=== PATIENT | male | born 1990 | race Hispanic/Latino ===

== ENCOUNTER 2022-10-09 21:33 | Emergency (ER) | payer OTHER ==
[~2022-10-09] VITALS: Ht 177.8 cm; Wt 114.8 kg
[2022-10-09 21:40] VITALS: BP 135/90
[2022-10-09] MEDS ORDERED: KETOROLAC 30MG VIAL (30MG/ML) IM ONE (22:30)
[2022-10-09] MEDS ORDERED: CYCLOBENZAPRINE HCL 10 MG TABLET PO ONE (22:30)
[2022-10-10] MEDS ORDERED: IBUP-2077 PO (00:03)
[2022-10-10] MEDS ORDERED: CYCL10TA16 PO (00:03)
== END 2022-10-10 00:14 | disposition home or self-care (01) ==
LOC: EDH 21:33
DX: S39.012A Strain of muscle, fascia and tendon of lower back, initial encounter (principal); X58.XXXA Exposure to other specified factors, initial encounter; Y93.89 Activity, other specified; Y92.89 Other specified places as the place of occurrence of the external cause; Y99.8 Other external cause status
CPT/HCPCS: 99283; 72100; 96372; J1885

== ENCOUNTER 2022-11-06 22:56 | Emergency (ER) | payer OTHER ==
[~2022-11-06] VITALS: Ht 177.8 cm; Wt 110.2 kg
[~2022-11-06 22:56] MED LIST: CYCL10TA16 PO; IBUP-2077 PO
[2022-11-07] MEDS ORDERED: MORPHINE 4 MG SYG IVP ONE
[2022-11-07] MEDS ORDERED: 0.9%NACL 1000ML 1,000 ML IV ONE
[2022-11-07] MEDS ORDERED: ONDANSETRON 4MG INJ IVP ONE
[2022-11-07 00:33] LABS: BASOPHILS % (AUTO) 0.7 % (0.0-5.0); CREATININE 1.1 mg/dL (0.5-1.5); EOSINOPHILS % (AUTO) 2.9 % (0.0-8.0); LYMPHOCYTES % (AUTO) 26.2 % (21.0-51.0); MEAN CORPUSCULAR HEMOGLOBIN 28.6 pg (27.0-33.0); MEAN CORPUSCULAR HGB CONC 33.4 g/dL (32.0-36.0); MEAN CORPUSCULAR VOLUME 85.6 fL (79-99); NEUTROPHILS % (AUTO) 58.7 % (40.0-77.0); PLATELET COUNT (AUTO) 338 K/uL (130-400); POTASSIUM 3.8 mmol/L (3.5-5.1); RED BLOOD CELL COUNT(AUTO) 5.14 MIL/uL (4.50-6.20); RED CELL DISTRIBUTION WIDTH 12.3 % (11.0-15.5); WHITE BLOOD COUNT (AUTO) 10.3 K/uL (4.8-10.8)
[2022-11-07 00:38] LABS: ALBUMIN 4.2 g/dL (3.5-5.0); TOTAL PROTEIN, SERUM 7.5 g/dL (6.0-8.3)
[2022-11-07] MEDS ORDERED: IOHEXOL 350 MG/ML 100ML INFUS..BTL IV ONE (00:40)
[2022-11-07 00:54] LABS: APPEARANCE,URINE CLEAR (CLEAR); BILIRUBIN,URINE NEGATIVE (NEGATIVE); COLOR,URINE LIGHT-YELLOW (YELLOW); GLUCOSE, URINE (UA) NEGATIVE (NEGATIVE); KETONES,URINE NEGATIVE (NEGATIVE); LEUKOCYTE ESTERASE ,URINE NEGATIVE Leu/uL (NEGATIVE); NITRATE,URINE NEGATIVE (NEGATIVE); OCCULT BLOOD,URINE NEGATIVE (NEGATIVE); PH,URINE 5.5 (5.0-8.0); PROTEIN,URINE NEGATIVE (NEGATIVE); UROBILINOGEN,URINE 0.2 mg/dL (0.2-1.0)
[2022-11-07] MEDS ORDERED: IBUP-1493 PO (01:16)
[2022-11-07] MEDS ORDERED: OMEP40CA21 PO (01:16)
[2022-11-07 01:27] VITALS: BP 141/87
== END 2022-11-07 01:58 | disposition home or self-care (01) ==
LOC: EDH 22:56
DX: R10.9 Unspecified abdominal pain (principal); M54.50 Low back pain, unspecified; R11.2 Nausea with vomiting, unspecified; K40.90 Unilateral inguinal hernia, without obstruction or gangrene, not specified as recurrent; Z79.899 Other long term (current) drug therapy
CPT/HCPCS: 99285; 74177; 80053; 85025; 83605; 81003; 36415; 96374; 96361; 96375; J7030; J2405; J2270; Q9967

== ENCOUNTER 2023-03-23 19:05 | Emergency (ER) | payer OTHER ==
[~2023-03-23] VITALS: Ht 177.8 cm; Wt 116.6 kg
[~2023-03-23 19:05] MED LIST changes: +IBUP-1493 PO; +OMEP40CA21 PO
[2023-03-23] MEDS ORDERED: IBUP-1493 PO (21:03)
[2023-03-23] MEDS ORDERED: CYCL-309 PO (21:03)
[2023-03-23 21:41] VITALS: BP 139/83; PULSE 89; RESP 18; O2SAT 99
== END 2023-03-23 21:42 | disposition home or self-care (01) ==
LOC: EDH 19:05
DX: S09.8XXA Other specified injuries of head, initial encounter (principal); F41.9 Anxiety disorder, unspecified; Z79.899 Other long term (current) drug therapy; W18.39XA Other fall on same level, initial encounter; Y93.89 Activity, other specified; Y92.89 Other specified places as the place of occurrence of the external cause; Y99.8 Other external cause status
CPT/HCPCS: 70450; 72125

== ENCOUNTER 2023-04-05 20:33 | Emergency (ER) | payer OTHER ==
[~2023-04-05] VITALS: Ht 177.8 cm; Wt 111.1 kg
[~2023-04-05 20:33] MED LIST changes: +CYCL-309 PO; -CYCL10TA16 PO; -IBUP-2077 PO
[2023-04-05 21:02] LABS: SARS-CoV-2, RNA, NAAT NEGATIVE SARS CoV-2 (NEGATIVE)
[2023-04-05 21:07] LABS: BASOPHILS # (AUTO) 0.06 K/uL (0.00-0.20); BASOPHILS % (AUTO) 0.6 % (0.0-5.0); EOSINOPHILS # (AUTO) 0.21 K/uL (0.00-0.70); EOSINOPHILS % (AUTO) 2.1 % (0.0-8.0); HEMATOCRIT 42.8 % (42-54); IMMATURE GRANULOCYTE ABSOLUTE 0.03 K/uL (0-1); LYMPHOCYTES # (AUTO) 2.5 K/uL (1.0-4.8); LYMPHOCYTES % (AUTO) 24.5 % (21.0-51.0); MEAN CORPUSCULAR HEMOGLOBIN 29.4 pg (27.0-33.0); MEAN CORPUSCULAR HGB CONC 33.9 g/dL (32.0-36.0); MEAN CORPUSCULAR VOLUME 86.8 fL (79-99); MONOCYTES % (AUTO) 9.9 % (3.0-13.0); NEUTROPHILS # (AUTO) 6.3 K/uL (1.8-7.7); NEUTROPHILS % (AUTO) 62.6 % (40.0-77.0); PLATELET COUNT (AUTO) 328 K/uL (130-400); RED BLOOD CELL COUNT(AUTO) 4.93 MIL/uL (4.50-6.20); RED CELL DISTRIBUTION WIDTH 12.2 % (11.0-15.5)
[2023-04-05 21:08] LABS: INFLUENZA TYPE A Negative For Type A (NEGATIVE); INFLUENZA TYPE B Negative For Type B (NEGATIVE)
[2023-04-05 21:18] LABS: CREATININE 1.2 mg/dL (0.5-1.5); POTASSIUM 3.3 mmol/L (3.5-5.1)
[2023-04-05 21:23] LABS: BILIRUBIN,TOTAL 0.5 mg/dL (0.2-1.0); TOTAL PROTEIN, SERUM 7.5 g/dL (6.0-8.3)
[2023-04-05 22:26] LABS: BILIRUBIN,URINE NEGATIVE (NEGATIVE); COLOR,URINE LIGHT-YELLOW (YELLOW); GLUCOSE, URINE (UA) NEGATIVE (NEGATIVE); KETONES,URINE NEGATIVE (NEGATIVE); LEUKOCYTE ESTERASE ,URINE NEGATIVE Leu/uL (NEGATIVE); NITRATE,URINE NEGATIVE (NEGATIVE); OCCULT BLOOD,URINE NEGATIVE (NEGATIVE); PROTEIN,URINE NEGATIVE (NEGATIVE); UROBILINOGEN,URINE 0.2 mg/dL (0.2-1.0)
[2023-04-05 22:27] LABS: APPEARANCE,URINE CLEAR (CLEAR)
[2023-04-05 22:28] LABS: ADD UA MICROSCOPIC NO
[2023-04-06] MEDS ORDERED: OMEP40CA21 PO (00:51)
[2023-04-06 00:59] VITALS: BP 124/70; PULSE 78; RESP 18; O2SAT 98
== END 2023-04-06 01:15 | disposition home or self-care (01) ==
LOC: EDH 20:33
DX: R07.89 Other chest pain (principal); F41.9 Anxiety disorder, unspecified; Z20.822 Contact with and (suspected) exposure to COVID-19; Z79.899 Other long term (current) drug therapy
CPT/HCPCS: 99285; 76705; 71045; 87635; 84484; 80053; 85025; 87804 ×2; 81003; 36415; 93005; C9803

== ENCOUNTER 2023-11-22 19:27 | Emergency (ER) | payer BC ==
[~2023-11-22] VITALS: Ht 177.8 cm; Wt 106.6 kg
[2023-11-22] MEDS ORDERED: KETO10TA2 PO (21:23)
[2023-11-22] MEDS: KETOROLAC 30MG VIAL (30MG/ML) IM ONE (21:32)
[2023-11-22 21:38] VITALS: BP 125/83; PULSE 63; RESP 16; O2SAT 97
== END 2023-11-22 22:05 | disposition home or self-care (01) ==
LOC: EDH 19:27
DX: S89.91XA Unspecified injury of right lower leg, initial encounter (principal); F41.9 Anxiety disorder, unspecified; X58.XXXA Exposure to other specified factors, initial encounter; Y93.89 Activity, other specified; Y92.89 Other specified places as the place of occurrence of the external cause; Y99.8 Other external cause status
CPT/HCPCS: 99284; 29505; 73562; 96372; J1885

== ENCOUNTER 2023-12-16 22:08 | Emergency (ER) | payer BC ==
[~2023-12-16] VITALS: Ht 177.8 cm; Wt 104.3 kg
[~2023-12-16 22:08] MED LIST changes: +KETO10TA2 PO
[2023-12-16] MEDS: ACETAMINOPHEN 500 MG TABLET PO ONE (22:29)
[2023-12-16 23:37] VITALS: BP 138/78; PULSE 91; RESP 19; O2SAT 100
== END 2023-12-17 00:23 | disposition home or self-care (01) ==
LOC: EDH 22:08
DX: S09.90XA Unspecified injury of head, initial encounter (principal); F41.9 Anxiety disorder, unspecified; Z79.1 Long term (current) use of non-steroidal anti-inflammatories (NSAID); Z79.899 Other long term (current) drug therapy; W18.39XA Other fall on same level, initial encounter; Y93.89 Activity, other specified; Y92.89 Other specified places as the place of occurrence of the external cause; Y99.8 Other external cause status
CPT/HCPCS: 70450; 72125

== ENCOUNTER 2024-02-26 05:59 | Emergency (ER) | payer BC ==
[~2024-02-26] VITALS: Ht 177.8 cm; Wt 108.9 kg
[2024-02-26] MEDS: ketOROlac 15MG/ML VIAL (15MG/ML) IM ONE (07:48)
[2024-02-26 07:57] LABS: HEMATOCRIT 44.1 % (42-54); MEAN CORPUSCULAR HEMOGLOBIN 29.7 pg (27.0-33.0); MEAN CORPUSCULAR HGB CONC 33.3 g/dL (32.0-36.0); MEAN CORPUSCULAR VOLUME 89.1 fL (79-99); PLATELET COUNT (AUTO) 317 K/uL (130-400); RED BLOOD CELL COUNT(AUTO) 4.95 MIL/uL (4.50-6.20); RED CELL DISTRIBUTION WIDTH 12.2 % (11.0-15.5); WHITE BLOOD COUNT (AUTO) 13.3 K/uL (4.8-10.8)
[2024-02-26 08:02] LABS: BASOPHILS # (AUTO) 0.06 K/uL (0.00-0.20); BASOPHILS % (AUTO) 0.5 % (0.0-5.0); EOSINOPHILS # (AUTO) 0.23 K/uL (0.00-0.70); EOSINOPHILS % (AUTO) 1.8 % (0.0-8.0); IMMATURE GRANULOCYTE ABSOLUTE 0.05 K/uL (0-1); LYMPHOCYTES # (AUTO) 2.3 K/uL (1.0-4.8); LYMPHOCYTES % (AUTO) 17.9 % (21.0-51.0); MONOCYTES # (AUTO) 1.1 K/uL (0.1-1.0); MONOCYTES % (AUTO) 8.3 % (3.0-13.0); NEUTROPHILS # (AUTO) 9.3 K/uL (1.8-7.7); NEUTROPHILS % (AUTO) 71.1 % (40.0-77.0)
[2024-02-26 08:08] LABS: POTASSIUM 3.4 mmol/L (3.5-5.1)
[2024-02-26] MEDS ORDERED: DICL500C PO (08:43)
[2024-02-26] MEDS ORDERED: IBUP-2077 PO (08:45)
[2024-02-26 08:59] VITALS: BP 129/88; PULSE 80; RESP 14; TEMP 98; O2SAT 99
== END 2024-02-26 09:00 | disposition home or self-care (01) ==
LOC: EDH 05:59
DX: L02.212 Cutaneous abscess of back [any part, except buttock and flank] (principal); L74.3 Miliaria, unspecified; Z79.899 Other long term (current) drug therapy; Z79.2 Long term (current) use of antibiotics
CPT/HCPCS: 99284; 10060; 80048; 85025; 36415; 96372; J1885

== ENCOUNTER 2024-08-22 03:56 | Emergency (ER) | payer BC ==
[~2024-08-22] VITALS: Ht 177.8 cm; Wt 113.4 kg
[~2024-08-22 03:56] MED LIST changes: +DICL500C PO; +IBUP-2077 PO
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
[2024-08-22 04:29] LABS: BASOPHILS % (AUTO) 0.8 % (0.0-5.0); EOSINOPHILS # (AUTO) 0.02 K/uL (0.00-0.70); EOSINOPHILS % (AUTO) 0.2 % (0.0-8.0); HEMATOCRIT 43.2 % (42-54); IMMATURE GRANULOCYTE ABSOLUTE 0.08 K/uL (0-1); LYMPHOCYTES # (AUTO) 2.4 K/uL (1.0-4.8); LYMPHOCYTES % (AUTO) 18.4 % (21.0-51.0); MEAN CORPUSCULAR HEMOGLOBIN 29.1 pg (27.0-33.0); MEAN CORPUSCULAR HGB CONC 32.6 g/dL (32.0-36.0); MEAN CORPUSCULAR VOLUME 89.1 fL (79-99); MONOCYTES # (AUTO) 1.2 K/uL (0.1-1.0); MONOCYTES % (AUTO) 9.2 % (3.0-13.0); NEUTROPHILS # (AUTO) 9.1 K/uL (1.8-7.7); NEUTROPHILS % (AUTO) 70.8 % (40.0-77.0); PLATELET COUNT (AUTO) 436 K/uL (130-400); RED BLOOD CELL COUNT(AUTO) 4.85 MIL/uL (4.50-6.20); RED CELL DISTRIBUTION WIDTH 12.4 % (11.0-15.5); WHITE BLOOD COUNT (AUTO) 12.9 K/uL (4.8-10.8)
[2024-08-22 04:36] LABS: ALCOHOL, BLOOD < 3 mg/dL (0-10); CARBON DIOXIDE 32 mmol/L (21-32); CHLORIDE 103 mmol/L (101-111); CREATININE 1.1 mg/dL (0.5-1.3); GLOMERULAR FILTR. RATE CALC 90 mL/min (>90); GLUCOSE,RANDOM 108 mg/dL (70-105); POTASSIUM 3.7 mmol/L (3.5-5.1); SODIUM SERUM 139 mmol/L (136-145); UREA NITROGEN, BLOOD 14 mg/dL (7-18)
[2024-08-22] MEDS: ondanSETRON 4MG INJ IVP ONE (04:49)
[2024-08-22] MEDS: ketOROlac 15MG/ML VIAL (15MG/ML) IV ONE (04:49)
[2024-08-22 05:17] LABS: AMPHET/METH SCREEN,URINE NEGATIVE (NEGATIVE); BARBITURATE SCREEN, URINE NEGATIVE (NEGATIVE); BENZODIAZEPINES SCREEN,URINE NEGATIVE (NEGATIVE); CANNABINOID SCREEN,URINE NEGATIVE (NEGATIVE); COCAINE SCREEN,URINE NEGATIVE (NEGATIVE); OPIATE SCREEN,URINE NEGATIVE (NEGATIVE); PHENCYCLIDINE SCREEN,URINE NEGATIVE (NEGATIVE)
[2024-08-22 06:51] VITALS: BP 141/74; PULSE 73; RESP 17; TEMP 98.4; O2SAT 99
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
== END 2024-08-22 06:55 | disposition home or self-care (01) ==
LOC: EDH 03:56
DX: S06.0XAA Concussion with loss of consciousness status unknown, initial encounter (principal); E66.9 Obesity, unspecified; Z79.1 Long term (current) use of non-steroidal anti-inflammatories (NSAID); Z79.899 Other long term (current) drug therapy; Z68.35 Body mass index [BMI] 35.0-35.9, adult; Y04.8XXA Assault by other bodily force, initial encounter; Y93.89 Activity, other specified; Y92.89 Other specified places as the place of occurrence of the external cause; Y99.8 Other external cause status
CPT/HCPCS: 99284; 96374; 70450; 96375; 80048; 80305; 85025; 36415; J1885; J2405

== ENCOUNTER 2024-11-06 19:53 | Emergency (ER) | payer BC ==
[~2024-11-06] VITALS: Ht 172.7 cm; Wt 95.3 kg
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
[2024-11-06] MEDS: CYCLOBENZAPRINE HCL 10 MG TABLET PO ONE (20:31)
[2024-11-06] MEDS: HYDROcodone/APAP 5/325 1 TAB TABLET PO ONE (20:31)
--- NOTE | 2024-11-06 21:21 | HMCIMG ---
KNEE 4+VWS RT CLINICAL HISTORY: fall injury COMPARISON: None TECHNIQUE: AP lateral and oblique images were obtained. FINDINGS: No obvious fracture or dislocation. No joint effusion. The soft tissues appear unremarkable. No radiopaque foreign bodies. IMPRESSION: No acute findings.
--- NOTE | 2024-11-06 21:40 | HMCIMG ---
ELBOW COMP 3+VWS RT CLINICAL HISTORY: fall/pain and swelling COMPARISON: None TECHNIQUE: AP lateral and oblique images were obtained. FINDINGS: No obvious fracture or dislocation. No joint effusion. The soft tissues appear unremarkable. No radiopaque foreign bodies. IMPRESSION: No acute findings.
--- NOTE | 2024-11-06 21:42 | HMCIMG ---
ANKLE COMP 3VWS RT CLINICAL HISTORY: fall injury COMPARISON: None TECHNIQUE: AP lateral and oblique images were obtained. FINDINGS: No obvious fracture or dislocation. No joint effusion. The soft tissues appear unremarkable. No radiopaque foreign bodies. IMPRESSION: No acute findings.
[2024-11-06] MEDS ORDERED: IBUP-2070 PO (22:09)
[2024-11-06] MEDS ORDERED: CYCL5TAB3 PO (22:09)
[2024-11-06 22:20] VITALS: BP 144/80; PULSE 95; RESP 18; TEMP 97.7; O2SAT 98
== END 2024-11-06 22:40 ==
LOC: EDH 19:53
DX: S83.8X1A Sprain of other specified parts of right knee, initial encounter (principal); S93.491A Sprain of other ligament of right ankle, initial encounter; M25.521 Pain in right elbow; K21.9 Gastro-esophageal reflux disease without esophagitis; E66.9 Obesity, unspecified; Z79.1 Long term (current) use of non-steroidal anti-inflammatories (NSAID); Z79.899 Other long term (current) drug therapy; W17.2XXA Fall into hole, initial encounter; Y93.89 Activity, other specified; Y92.89 Other specified places as the place of occurrence of the external cause; Y99.8 Other external cause status
CPT/HCPCS: 73080; 73564; 73610; 99283

== ENCOUNTER 2025-03-01 23:48 | Emergency (ER) | payer BC ==
[~2025-03-01] VITALS: Ht 177.8 cm; Wt 112.9 kg
[~2025-03-01 23:48] MED LIST changes: +CYCL5TAB3 PO; +IBUP-1492 PO
[2025-03-02 00:35] LABS: IMMATURE GRANULOCYTE ABSOLUTE 0.04 K/uL (0-1); NUCLEATED RED BLOOD CELLS 0.0 % (0.0-0.19); PLATELET COUNT (AUTO) 380 K/uL (130-400); RED BLOOD CELL COUNT(AUTO) 4.97 MIL/uL (4.50-6.20); RED CELL DISTRIBUTION WIDTH 12.3 % (11.0-15.5); WHITE BLOOD COUNT (AUTO) 12.3 K/uL (4.8-10.8)
[2025-03-02 00:47] LABS: COVID19 (SARS ANTIGEN RAPID) PRESUMPTIVE NEGATIVE (NEGATIVE)
[2025-03-02 00:48] LABS: INFLUENZA TYPE A Negative For Type A (NEGATIVE); INFLUENZA TYPE B Negative For Type B (NEGATIVE)
[2025-03-02 00:48] LABS: CREATININE 1.1 mg/dL (0.5-1.3); GLOMERULAR FILTR. RATE CALC 90.0 mL/min (>90); GLUCOSE,RANDOM 99.0 mg/dL (70-105); SODIUM SERUM 137.0 mmol/L (136-145); UREA NITROGEN, BLOOD 13.0 mg/dL (7-18)
[2025-03-02 00:53] LABS: ASPARTATE AMINOTRANSFERASE 27.0 U/L (10-37); TOTAL PROTEIN, SERUM 7.2 g/dL (6.0-8.3)
[2025-03-02] MEDS: 0.9%NACL 1000ML 1,000 ML IV ONE (01:04)
[2025-03-02 01:24] LABS: ADD UA MICROSCOPIC NO; APPEARANCE,URINE CLEAR (CLEAR); GLUCOSE, URINE (UA) NEGATIVE (NEGATIVE); LEUKOCYTE ESTERASE ,URINE NEGATIVE Leu/uL (NEGATIVE); NITRATE,URINE NEGATIVE (NEGATIVE); OCCULT BLOOD,URINE NEGATIVE (NEGATIVE)
--- NOTE | 2025-03-02 01:27 | ERN ---
ED Note History of Present Illness Stated Complaint: C/O ABD PAIN W/N X V X DIARRHEA Chief Complaint: Abdominal Pain Time Seen by MD: 23:52 Time Seen by Midlevel: 23:52 Dictation: The patient is a 34-year-old male with no past medical history who presents to the emergency department with complaints of nausea, nonbloody vomiting, nonbloody diarrhea, rlq abd pain, upper abd pain onset today. Patient reports that he was exposed to somebody with COVID but denies any upper respiratory symptoms. Denies any fevers. Allergies: Coded Allergies: No Known Allergies (Unverified Allergy, Unknown, 10/09/22) Home Meds Active Scripts Cyclobenzaprine HCl (Cyclobenzaprine HCl) 5 Mg Tablet, 10 MG PO [id number], #12 TAB 0 Refills Prov:DENISSE VELEZ NP 11/06/24 Ibuprofen (Ibuprofen) 600 Mg Tablet, 600 MG PO Q6H PRN for PAIN, #15 TAB 0 Refills Prov:DENISSE VELEZ NP 11/06/24 Ibuprofen (Ibuprofen 800 mg Tab) 800 Mg Tab, 800 MG PO TIDP PRN for PAIN for 7 Days, #30 TAB Prov:PATRICIA ONEAL MD 02/26/24 Dicloxacillin Sodium (Dicloxacillin Sodium) 500 Mg Capsule, 500 MG PO BID for 7 Days, #14 CAP Prov:PATRICIA ONEAL MD 02/26/24 Ketorolac Tromethamine (Ketorolac Tromethamine) 10 Mg Tablet, 10 MG PO BID for 5 Days, #10 TAB Prov:ARCHANA DELATORRE 11/22/23 Omeprazole (Omeprazole) 40 Mg Capsule.dr, 40 MG PO DAILY, #30 CAP Prov:GOSIA STRANGE MD 04/06/23 Ibuprofen (Motrin/Advil) 800 Mg Tab, 800 MG PO TID, #30 TAB Prov:GOSIA STRANGE MD 03/23/23 Cyclobenzaprine HCl (Cyclobenzaprine HCl) 10 Mg Tablet, 10 MG PO TIDP PRN for PAIN, #30 TAB Prov:GOSIA STRANGE MD 03/23/23 Past Medical History Past Medical History: Other Additional Past Medical Hx: PTSD Surgical History: None Surgical History Other: ORAL Family History: Negative Social History: Negative, Lives with family RN Note Reviewed/Agreed w/PFSH: Yes Review of System Dictation Constitutional: Negative for fever,chills, and weight loss Eyes: Negative for injury, pain,redness, and discharge ENT: Negative for injury,pain or swelling Cardiovascular: Negative for chest pain, palpitations, and edema Respiratory: Negative for shortness of breath, cough, and wheezing, Abdomen/GI: Negative constipation positive for abdominal pain, nausea, vomiting, diarrhea, and c Back: Negative for injury and pain : Negative for injury, bleeding and discharge MS/Extremity: Negative for injury and deformity Skin: Negative for rash, and discoloration Neuro: Negative for headache, weakness, numbness, tingling, and seizure Psych: Negative for suicide ideation, homicidal ideation, and hallucinations Initial Vital Sign VS Vital Signs Date Time Temp Pulse Resp B/P (MAP) Pulse Ox O2 Delivery O2 Flow Rate FiO2 03/01/25 23:49 97.5 84 20 150/98 97 03/02/25 01:30 Room Air* 0 21 Physical Exam Dictation Vital Signs reviewed General Appearance: Alert, oriented x 3, no acute distress, well developed, nourished. Head and Face: non-traumatic. Eyes: PERRL, pink conjunctivas, eyelid no trauma, anterior chamber with arcus senilis. Ears: Pinnas intact and no signs of trauma or erythema ear canals clear and no discharge TM no erythema Nose: No discharge, no bleeding. Oropharynx: Mouth normal, tongue pink. pharynx clear,no erythema, tonsils no exudates, no abscesses noted, mucous membrane moist Neck: Supple, non-tender, no thyromegaly, no masses, no JVD, no bruits Breast:Deferred Chest:No tenderness, no crepitus, no paradoxical movement, no retractions Lungs:Clear, well-ventilated, symmetric, no rales, no wheezing, no rhonchi, no stridor, good breath sounds bilaterally Heart: Regular rate, regular rhythm, no murmur, no gallops Vascular: no peripheral edema, Abdomen: Soft, positive bowel sounds, nondistended, no guarding, nontender, no rebound, no masses no hepatomegaly, no splenomegaly, no Byrd's sign, no hernias. Rectal: Deferred Genital: Deferred Neurological: Normal speech, motor function intact, sensory function intact Musculoskeletal: Neck nontender, full range of motion, back nontender, full range of motion, Extremities: nontender, full range of motion Skin: Color pink, dry, no turgor, no rash, no lacerations, no abrasions, no cont usions. Lymphatic: Deferred Results (Laboratory/Radiology) Laboratory/Radiology Laboratory Tests Test 03/01/25 23:59 03/02/25 00:25 03/02/25 01:02 03/02/25 01:06 Influenza Type A Antigen Negative For Type A Influenza Type B Antigen Negative For Type B SARS-CoV-2 Antigen (Rapid) PRESUMPTIVE NEGATIVE White Blood Count 12.3 K/uL (4.8-10.8) H Red Blood Count 4.97 MIL/uL (4.50-6.20) Hemoglobin 14.9 g/dL (14.0-18.0) Hematocrit 42.8 % (42-54) Mean Corpuscular Volume 86.1 fL (79-99) Mean Corpuscular Hemoglobin 30.0 pg (27.0-33.0) Mean Corpuscular Hemoglobin Concent 34.8 g/dL (32.0-36.0) Red Cell Distribution Width 12.3 % (11.0-15.5) Platelet Count 380 K/uL (130-400) Mean Platelet Volume 10.5 fL (7.5-10.5) Immature Granulocyte % (Auto) 0.3 % (0-1) Neutrophils (%) (Auto) 59.8 % (40.0-77.0) Lymphocytes (%) (Auto) 24.7 % (21.0-51.0) Monocytes (%) (Auto) 10.9 % (3.0-13.0) Eosinophils (%) (Auto) 3.6 % (0.0-8.0) Basophils (%) (Auto) 0.7 % (0.0-5.0) Neutrophils # (Auto) 7.3 K/uL (1.8-7.7) Lymphocytes # (Auto) 3.0 K/uL (1.0-4.8) Monocytes # (Auto) 1.3 K/uL (0.1-1.0) H Eosinophils # (Auto) 0.44 K/uL (0.00-0.70) Basophils # (Auto) 0.09 K/uL (0.00-0.20) Absolute Immature Granulocyte (auto 0.04 K/uL (0-1) Nucleated Red Blood Cells 0.0 % (0.0-0.19) Sodium Level 137 mmol/L (136-145) Potassium Level 3.5 mmol/L (3.5-5.1) Chloride Level 99 mmol/L (101-111) L Carbon Dioxide Level 32 mmol/L (21-32) Blood Urea Nitrogen 13 mg/dL (7-18) Creatinine 1.1 mg/dL (0.5-1.3) Glomerular Filtration Rate Calc 90 mL/min (>90) Random Glucose 99 mg/dL (70-105) Total Calcium 9.0 mg/dL (8.5-10.1) Total Bilirubin 0.8 mg/dL (0.2-1.0) Direct Bilirubin 0.3 mg/dL (0.0-0.3) Aspartate Amino Transf (AST/SGOT) 27 U/L (10-37) Alanine Aminotransferase (ALT/SGPT) 67 U/L (12-78) Alkaline Phosphatase 97 U/L (50-136) Total Protein 7.2 g/dL (6.0-8.3) Albumin 4.2 g/dL (3.5-5.0) Lipase 39 U/L (16-77) Urine Color LIGHT-YELLOW (YELLOW) Urine Appearance CLEAR (CLEAR) Urine pH 5.5 (5.0-8.0) Urine Specific [place] 1.020 (1.001-1.031) Urine Protein NEGATIVE mg/dL (NEGATIVE) Urine Glucose (UA) NEGATIVE mg/dL (NEGATIVE) Urine Ketones NEGATIVE mg/dL (NEGATIVE) Urine Occult Blood NEGATIVE (NEGATIVE) Urine Nitrate NEGATIVE (NEGATIVE) Urine Bilirubin NEGATIVE mg/dL (NEGATIVE) Urine Urobilinogen 0.2 mg/dL (0.2-1.0) Urine Leukocyte Esterase NEGATIVE [place]/uL Group A Streptococcus Rapid negative (NEGATIVE) Labs Reviewed?: Yes CT Scan Comment: REASON: Abdominal Pain, rlq ORDERING PHYSICIAN: JALYN MA PROCEDURE: ABD PEL W - CT ABDOMEN/PELVIS W/CONTRAST EXAM: CT Abdomen and Pelvis with IV contrast CLINICAL HISTORY: Abdominal pain. TECHNIQUE: Postcontrast thin collimated axial CT images of the abdomen and pelvis were obtained with sagittal and coronal reformatted images also submitted. CT scan is done according to ALARA (As Low As Reasonably Achievable). COMPARISON: CT abdominal pelvis dated 11/07/2022. FINDINGS: The included lungs are clear. Mild fatty liver. No focal abnormality within the gallbladder, pancreas, spleen, adrenals, or kidneys. Unremarkable urinary bladder. The prostate is within normal limits. Tiny uncomplicated fat-containing inguinal hernias bilaterally. No obvious bowel wall thickening, dilatation, or obstruction. Unremarkable appendix. Grossly unremarkable abdominal vessels. No pathological lymphadenopathy in the abdomen or pelvis. No ascites or pneumoperitoneum. No acute bony abnormality is evident. IMPRESSIONS: No acute process in the abdomen or pelvis. Mild fatty liver. Compared to the prior study, there is no significant interval change. /[place] DICTATED BY: RADHA LEE Jr., MD DATE: 03/02/25414 ELECTRONICALLY SIGNED BY: RADHA LEE Jr., MD DATE: 03/02/25414 ED Course ED Course Orders Procedure Category Date Status Time Cbc With Differential LAB 03/01/25 Complete 23:57 Urinalysis Profile LAB 03/01/25 Complete 23:57 Lipase LAB 03/01/25 Complete 23:57 Basic Metabolic Panel LAB 03/01/25 Complete 23:57 Hepatic Function Panel LAB 03/01/25 Complete 23:57 Covid19 (Sars Antigen LAB 03/01/25 Complete Rapid) 23:57 Influenza Type A & B, LAB 03/01/25 Complete Rapid 23:57 0.9%Nacl 1000ml (Ns PHA 03/02/25 Complete 1000ml) 00:00 Ondansetron 4mg Inj PHA 03/02/25 Complete (Zofran 4mg Inj) 00:00 Pantoprazole 40mg Inj PHA 03/02/25 Complete (Protonix 40mg Inj 00:00 Rapid (Group A Strep) LAB 03/02/25 Complete 00:30 Ct Abdomen/Pelvis CT 03/02/25 Resulted W/Contrast 01:45 Iohexol (Omnipaque) PHA 03/02/25 Complete 02:21 Current Medications Medications (Trade) Dose Ordered Sig/Adam Route PRN Reason Start Time Stop Time Status Last Admin Dose Admin Iohexol (Omnipaque) 35,000 mg STK-MED ONCE IV 03/02/25 02:21 03/02/25 02:21 DC Ondansetron HCl (zoFRAN 4MG INJ) 4 mg ONCE ONCE IVP 03/02/25 00:00 03/02/25 00:01 DC 03/02/25 01:04 Pantoprazole Sodium (PROTonix 40MG INJ) 40 mg ONCE ONCE IVP 03/02/25 00:00 03/02/25 00:01 DC 03/02/25 01:04 Sodium Chloride 1,000 ml @ 0 mls/hr ONCE ONCE IV 03/02/25 00:00 03/02/25 00:01 DC 03/02/25 01:04 Vital Signs Date Time Temp Pulse Resp B/P (MAP) Pulse Ox O2 Delivery O2 Flow Rate FiO2 03/02/25 03:00 71 18 124/84 100 Room Air* 0 21 03/02/25 01:30 76 18 140/90 100 Room Air* 0 21 03/01/25 23:49 97.5 84 20 150/98 97 Medical Decision Making MDM The patient is a 34-year-old male with no past medical history who presents to the emergency department with complaints of nausea, nonbloody vomiting, nonbloody diarrhea, rlq abd pain, upper abd pain onset today. Patient reports that he was exposed to somebody with COVID but denies any upper respiratory symptoms. Denies any fevers. Differential diagnosis: Gastroenteritis, gastritis, COVID-19 infection, dehydration MDM: Differential diagnosis: Rationale: Tests considered and ordered secondary to shared decision making include: Previous outside records reviewed: Old ER visits. Risk of complication and/or morbidity or mortality of patient management: None Medications-Per medication reconciliation Need for hospitalization: Patient does not meet criteria for hospitalization. Need for emergency major/minor surgery: No There are no social concerns with this patient. Prescription drug management Prescriptions will include symptomatic care Patient's prior external medical records from other ER visits were reviewed by me as indicated. Prior testing and results from previous visits were reviewed. Prior tests were taken into account with medical decision making and resource utilization, independent historian/historians were used to obtain complete medical history. I independently interpreted the test that were performed, results were reviewed by me and considered findings on radiology if ordered. Medical management and examination interpretation discussions were had by me with other qualified healthcare professionals as indicated for the patient's care. DX & DISP Disposition: Discharge Departure Impression: Primary Impression: Gastroenteritis Additional Impression: Mild dehydration Condition: Stable Additional Instructions: Patient and the caregiver have been informed of all the diagnostic tests and the imaging conducted during the today's visit to the emergency room and has verbalized understanding of the results I have personally reviewed and interpreted all diagnostic exams performed here in the ER today as well as the vital signs documented by the nursing staff. The patient is now being discharged to home and should follow up with the primary care physician or the specialist as directed by the ER staff. Follow-up with primary care provider in 1 to 2 days. Take medications as directed here in the emergency room. Okay to continue home medications unless otherwise discussed during your visit in the emergency room today. Return to your nearest emergency room if symptoms worsen or if there is no improvement. Call 911 if you need immediate assistance. Take Tylenol or Motrin [id number] as needed and if no contraindications are present. Increase oral hydration. A wound culture or urine culture was ordered here in the emergency room department please follow-up with primary care provider and advise them to get repeat ports from our facility. If you had any Juvencio wrap/splints that were applied here, please do not remove them until you see your primary care or specialty. Referrals: Andra LEROY MD (PCP) JALYN MA Mar 02, 2025 01:27 ROSENDO LOCKE MD Mar 02, 2025 03:22
[2025-03-02] MEDS ORDERED: IOHEXOL 350 MG/ML 100ML INFUS..BTL IV ONE (02:21)
--- NOTE | 2025-03-02 02:27 | NUR ---
PATIENT AT CT SCAN AT THIS TIME.
--- NOTE | 2025-03-02 03:15 | HMCIMG ---
EXAM: CT Abdomen and Pelvis with IV contrast CLINICAL HISTORY: Abdominal pain. TECHNIQUE: Postcontrast thin collimated axial CT images of the abdomen and pelvis were obtained with sagittal and coronal reformatted images also submitted. CT scan is done according to ALARA (As Low As Reasonably Achievable). COMPARISON: CT abdominal pelvis dated 11/07/2022. FINDINGS: The included lungs are clear. Mild fatty liver. No focal abnormality within the gallbladder, pancreas, spleen, adrenals, or kidneys. Unremarkable urinary bladder. The prostate is within normal limits. Tiny uncomplicated fat-containing inguinal hernias bilaterally. No obvious bowel wall thickening, dilatation, or obstruction. Unremarkable appendix. Grossly unremarkable abdominal vessels. No pathological lymphadenopathy in the abdomen or pelvis. No ascites or pneumoperitoneum. No acute bony abnormality is evident. IMPRESSIONS: No acute process in the abdomen or pelvis. Mild fatty liver. Compared to the prior study, there is no significant interval change. /[place]
[2025-03-02 04:05] VITALS: BP 128/72; PULSE 70; RESP 18; TEMP 98.4; O2SAT 98
== END 2025-03-02 04:07 | disposition home or self-care (01) ==
LOC: EDH 23:48
DX: K52.9 Noninfective gastroenteritis and colitis, unspecified (principal); E86.0 Dehydration; Z79.1 Long term (current) use of non-steroidal anti-inflammatories (NSAID); Z79.899 Other long term (current) drug therapy; Z20.822 Contact with and (suspected) exposure to COVID-19
CPT/HCPCS: 99284; 87426; 80076; 80048; 83690; 85025; 87880; 87804 ×2; 81003; 36415; 74177; 96374; 96375; J1885; J7030; J2405; J2470; Q9967

== ENCOUNTER 2025-05-04 10:22 | Emergency (ER) | payer BC ==
[~2025-05-04] VITALS: Ht 177.8 cm; Wt 111.1 kg
[2025-05-04 10:24] VITALS: PULSE 102; RESP 24; TEMP 98.3
--- NOTE | 2025-05-04 10:31 | ERN ---
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 HE DESCRIBES IT A STABBING PAIN NO SOB NO ARM PAIN NO JAW PAIN NO BACK PAIN. STATES HE DOES HAVE A HISTORY OF ANXIETY AND HAS BEEN SEEN HERE IN THE PAST FOR ATYPICAL CHEST PAIN. 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 11/06/24 Ibuprofen (Ibuprofen 800 mg Tab) 800 Mg Tab, 800 MG PO TIDP PRN for PAIN for 7 Days, #30 TAB Prov:PATRICIA ONEAL MD 02/26/24 Dicloxacillin Sodium (Dicloxacillin Sodium) 500 Mg Capsule, 500 MG PO BID for 7 Days, #14 CAP Prov:PATRICIA ONEAL MD 02/26/24 Ketorolac Tromethamine (Ketorolac Tromethamine) 10 Mg Tablet, 10 MG PO BID for 5 Days, #10 TAB Prov:ARCHANA DELATORRE 11/22/23 Omeprazole (Omeprazole) 40 Mg Capsule.dr, 40 MG PO DAILY, #30 CAP Prov:GOSIA STRANGE MD 04/06/23 Ibuprofen (Motrin/Advil) 800 Mg Tab, 800 MG PO TID, #30 TAB Prov:GOSIA STRANGE MD 03/23/23 Cyclobenzaprine HCl (Cyclobenzaprine HCl) 10 Mg Tablet, 10 MG PO TIDP PRN for PAIN, #30 TAB Prov:GOSIA STRANGE MD 03/23/23 Past Medical History Past Medical History: Anxiety Additional Past Medical Hx: PTSD Surgical History: None Surgical History Other: ORAL Family History: Negative Social History: Negative, Lives with family RN Note Reviewed/Agreed w/PFSH: Yes Review of System Dictation CONSTITUTIONAL: NEGATIVE EXCEPT FOR HPI HEAD/FACE: NEGATIVE EXCEPT FOR HPI EENT: NEGATIVE EXCEPT FOR HPI RESPIRATORY: NEGATIVE EXCEPT FOR HPI CHEST PAIN GASTROINTESTINAL/ABDOMINAL: NEGATIVE EXCEPT FOR HPI GENITOURINARY: NEGATIVE EXCEPT FOR HPI MUSCULOSKELETAL: NEGATIVE EXCEPT FOR HPI INTEGUMENTARY: NEGATIVE EXCEPT FOR HPI NEUROLOGICAL/PSYCH: NEGATIVE EXCEPT FOR HPI ANXIETY HEMATOLOGIC/LYMPHATIC: NEGATIVE EXCEPT FOR HPI ALL SYSTEMS NEGATIVE, EXCEPT NOTED ABOVE. 13 POINT REVIEW OF SYSTEMS ASSESSED AND ALL NEGATIVE EXCEPT FOR ABOVE. Initial Vital Sign VS Vital Signs Date Time Temp Pulse Resp B/P (MAP) Pulse Ox O2 Delivery O2 Flow Rate FiO2 05/04/25 10:24 98.2 102 24 100 Room Air 0 Physical Exam Dictation VITAL SIGNS REVIEWED GENERAL APPEARANCE: ALERT, ORIENTED X 3, NO ACUTE DISTRESS, WELL DEVELOPED, N OURISHED. MORBID OBESITY/ANXIOUS HEAD AND FACE: NON-TRAUMATIC. EYES: PERRL, PINK CONJUNCTIVAS, EYELID NO TRAUMA, ANTERIOR CHAMBER WITH ARCUS SENILIS. EARS: PINNAS INTACT AND NO SIGNS OF TRAUMA OR ERYTHEMA EAR CANALS CLEAR AND NO DISCHARGE TM NO ERYTHEMA NOSE: NO DISCHARGE, NO BLEEDING. OROPHARYNX: MOUTH NORMAL, TONGUE PINK, PHARYNX CLEAR,NO ERYTHEMA, TONSILS NO EXUDATES, NO ABSCESSES NOTED, MUCOUS MEMBRANE MOIST NECK: SUPPLE, NON-TENDER, NO THYROMEGALY, NO MASSES, NO JVD, NO BRUITS BREAST:DEFERRED CHEST:NO TENDERNESS, NO CREPITUS, NO PARADOXICAL MOVEMENT, NO RETRACTIONS LUNGS:CLEAR, WELL-VENTILATED, SYMMETRIC, NO RALES, NO WHEEZING, NO RHONCHI, NO STRIDOR, GOOD BREATH SOUNDS BILATERALLY HEART: REGULAR RATE, REGULAR RHYTHM, NO MURMUR, NO GALLOPS VASCULAR: NO PERIPHERAL EDEMA, ABDOMEN: SOFT, POSITIVE BOWEL SOUNDS, NONDISTENDED, NO GUARDING, NONTENDER, NO REBOUND, NO MASSES NO HEPATOMEGALY, NO SPLENOMEGALY, NO CARRILLO'S SIGN, NO HERNIAS. RECTAL: DEFERRED GENITAL: DEFERRED NEUROLOGICAL: NORMAL SPEECH, MOTOR FUNCTION INTACT, SENSORY FUNCTION INTACT MUSCULOSKELETAL: NECK NONTENDER, FULL RANGE OF MOTION, BACK NONTENDER, FULL R SOSA OF MOTION, EXTREMITIES: NONTENDER, FULL RANGE OF MOTION SKIN: COLOR PINK, DRY, NO TURGOR, NO RASH, NO LACERATIONS, NO ABRASIONS, NO CONTUSIONS. LYMPHATIC: DEFERRED Results (Laboratory/Radiology) Laboratory/Radiology Laboratory Tests Test 05/04/25 10:26 White Blood Count 9.3 K/uL (4.8-10.8) Red Blood Count 4.99 MIL/uL (4.50-6.20) Hemoglobin 14.7 g/dL (14.0-18.0) Hematocrit 43.7 % (42-54) Mean Corpuscular Volume 87.6 fL (79-99) Mean Corpuscular Hemoglobin 29.5 pg (27.0-33.0) Mean Corpuscular Hemoglobin Concent 33.6 g/dL (32.0-36.0) Red Cell Distribution Width 12.5 % (11.0-15.5) Platelet Count 390 K/uL (130-400) Mean Platelet Volume 10.4 fL (7.5-10.5) Immature Granulocyte % (Auto) 0.5 % (0-1) Neutrophils (%) (Auto) 58.5 % (40.0-77.0) Lymphocytes (%) (Auto) 24.3 % (21.0-51.0) Monocytes (%) (Auto) 12.1 % (3.0-13.0) Eosinophils (%) (Auto) 3.8 % (0.0-8.0) Basophils (%) (Auto) 0.8 % (0.0-5.0) Neutrophils # (Auto) 5.5 K/uL (1.8-7.7) Lymphocytes # (Auto) 2.3 K/uL (1.0-4.8) Monocytes # (Auto) 1.1 K/uL (0.1-1.0) H Eosinophils # (Auto) 0.35 K/uL (0.00-0.70) Basophils # (Auto) 0.07 K/uL (0.00-0.20) Absolute Immature Granulocyte (auto 0.05 K/uL (0-1) Nucleated Red Blood Cells 0.0 % (0.0-0.19) Sodium Level 134 mmol/L (136-145) L Potassium Level 3.3 mmol/L (3.5-5.1) L Chloride Level 99 mmol/L (101-111) L Carbon Dioxide Level 26 mmol/L (21-32) Blood Urea Nitrogen 14 mg/dL (7-18) Creatinine 1.5 mg/dL (0.5-1.3) H Glomerular Filtration Rate Calc 62 mL/min (>90) Random Glucose 110 mg/dL (70-105) H Total Calcium 9.1 mg/dL (8.5-10.1) Troponin I High Sensitivity < 4 ng/L (4-75) L EXAM: CR Chest, 1 View. CLINICAL HISTORY: CP. COMPARISON: None provided. FINDINGS: LUNGS: The lungs show no infiltrate or other acute finding. PLEURAL SPACES: No pleural effusion or pneumothorax. MEDIASTINUM: Cardiac size and mediastinal contours are within normal limits. BONES: No aggressive appearing osseous lesion is seen. IMPRESSION: No acute cardiopulmonary pathology is evident. /[place] Labs Reviewed?: Yes EKG Comment: 1030/EKG SINUS TACHYCARDIA/HEART RATE 107/AXIS NORMAL/NO ECTOPY ED Course ED Course Orders Procedure Category Date Status Time Cbc With Differential LAB 05/04/25 Complete 10:24 Chest 1vw RAD 05/04/25 Resulted 10:24 12 Lead Ekg Tracing- EKG 05/04/25 Complete Technical 10:24 Troponin I High LAB 05/04/25 Complete Sensitivity 10:24 Basic Metabolic Panel LAB 05/04/25 Complete 10:24 Potassium Bicarb/Cit PHA 05/04/25 Complete Ac 25meq (K-Lyte Ta 11:00 Current Medications Medications (Trade) Dose Ordered Sig/Adam Route PRN Reason Start Time Stop Time Status Last Admin Dose Admin Potassium Bicarbonate (K-Lyte Tablet Eff 25 Meq Tablet.eff) 25 meq ONCE ONCE PO 05/04/25 11:00 05/04/25 11:01 DC Vital Signs Date Time Temp Pulse Resp B/P (MAP) Pulse Ox O2 Delivery O2 Flow Rate FiO2 05/04/25 10:24 98.2 102 24 100 Room Air 0 1122/CARDIAC WORKUP IS NEGATIVE PATIENT HAS A HYPOKALEMIA WITH POTASSIUM 3.3 THIS WAS REPLACED IN THE EMERGENCY ROOM. DISCHARGED HOME WITH HEART PALPITATIONS, HYPOKALEMIA AND ANXIETY PATIENT TOLD FOLLOW UP WITH HIS PRIMARY CARE DOCTOR AND CONTINUE HIS HIGH BLOOD PRESSURE MEDICATIONS FROM HIS DOCTOR HEART Score Response (Comments) Value History: Low suspicion (0) 0 EKG: Normal 0 Age: < 45yrs (0) 0 Risk Factors: 1-2 risk factors (+1) 1 Initial Troponin: Normal limit (0) 0 Total 1 Medical Decision Making MDM MEDICAL DECISION-MAKING BASED ON A CARDIAC WORKUP AND CHEST X-RAY. EKG NORMAL SINUS RHYTHM HIGH SENSITIVITY HEART SCORE IS LESS THAN FOUR CHEST X-RAY CLEAR PATIENT HAS A LOW POTASSIUM AND WAS REPLACED TOLD TO CONTINUE ALL OF HIS MEDICATIONS FROM HIS DOCTOR AND FOLLOW UP WITH HIS DOCTOR IN THE NEXT 1-2 DAYS. DX & DISP Disposition: Discharge Departure Impression: Primary Impression: Palpitations Additional Impressions: Hypokalemia, Dehydration, Hyperglycemia, Anxiety Condition: Stable Additional Instructions: FOLLOW-UP WITH PRIMARY CARE PROVIDER IN 1 TO 2 DAYS. TAKE MEDICATIONS DIRECTED HERE IN THE EMERGENCY ROOM. OKAY TO CONTINUE HOME MEDICATIONS UNLESS OTHERWISE DISCUSSED DURING YOUR VISIT IN THE EMERGENCY ROOM TODAY. RETURN TO YOUR NEAREST EMERGENCY ROOM IF SYMPTOMS WORSEN OR IF THERE IS NO IMPROVEMENT. CALL 911 IF YOU NEED IMMEDIATE ASSISTANCE. TAKE TYLENOL OR MOTRIN [id number] NEEDED AND IF NO CONTRAINDICATIONS ARE PRESENT. INCREASE ORAL HYDRATION. A WOUND CULTURE OR URINE CULTURE WAS ORDERED HERE IN THE EMERGENCY ROOM DEPARTMENT PLEASE FOLLOW-UP WITH PRIMARY CARE PROVIDER AND ADVISE THEM TO GET REPEAT PORTS FROM OUR FACILITY. IF YOU HAD ANY CHANG WRAP/SPLINTS THAT WERE APPLIED HERE, PLEASE DO NOT REMOVE THEM UNTIL YOU SEE YOUR PRIMARY CARE OR SPECIALTY. CONTINUE ALL MEDICATIONS AND TREATMENTS FROM YOUR DOCTOR. FOLLOW UP WITH THE YOUR PRIMARY CARE DOCTOR IN THE NEXT 1-2 DAYS OR SEE ONE OF THE DOCTORS ON THE LIST PROVIDED YOU. Referrals: Andra LEROY MD (PCP) Time of Disposition: 11:24 I have reviewed the case, and I agree with, Diagnosis and Plan JOAQUÍN HAMLIN May 04, 2025 10:31
[2025-05-04 10:33] LABS: IMMATURE GRANULOCYTE ABSOLUTE 0.05 K/uL (0-1); NUCLEATED RED BLOOD CELLS 0.0 % (0.0-0.19); PLATELET COUNT (AUTO) 390 K/uL (130-400); RED BLOOD CELL COUNT(AUTO) 4.99 MIL/uL (4.50-6.20); RED CELL DISTRIBUTION WIDTH 12.5 % (11.0-15.5); WHITE BLOOD COUNT (AUTO) 9.3 K/uL (4.8-10.8)
[2025-05-04 10:43] LABS: CREATININE 1.5 mg/dL (0.5-1.3); GLOMERULAR FILTR. RATE CALC 62.0 mL/min (>90); GLUCOSE,RANDOM 110.0 mg/dL (70-105); SODIUM SERUM 134.0 mmol/L (136-145); UREA NITROGEN, BLOOD 14.0 mg/dL (7-18)
--- NOTE | 2025-05-04 10:45 | EKG ---
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
--- NOTE | 2025-05-04 11:06 | HMCIMG ---
EXAM: CR Chest, 1 View. CLINICAL HISTORY: CP. COMPARISON: None provided. FINDINGS: LUNGS: The lungs show no infiltrate or other acute finding. PLEURAL SPACES: No pleural effusion or pneumothorax. MEDIASTINUM: Cardiac size and mediastinal contours are within normal limits. BONES: No aggressive appearing osseous lesion is seen. IMPRESSION: No acute cardiopulmonary pathology is evident. /[place]
== END 2025-05-04 11:40 | disposition home or self-care (01) ==
LOC: EDH 10:22
DX: R00.2 Palpitations (principal); E87.6 Hypokalemia; E86.0 Dehydration; F41.9 Anxiety disorder, unspecified; R73.9 Hyperglycemia, unspecified; R07.89 Other chest pain; E66.01 Morbid (severe) obesity due to excess calories; Z68.35 Body mass index [BMI] 35.0-35.9, adult; Z79.1 Long term (current) use of non-steroidal anti-inflammatories (NSAID); Z79.899 Other long term (current) drug therapy
CPT/HCPCS: 36415; 71045; 80048; 84484; 85025; 93005; 99284